=== PATIENT | female | born 1960 | race Caucasian/White ===

== ENCOUNTER 2018-06-12 12:49 | Emergency (ER) | payer OTHER ==
[2018-06-12 12:59] VITALS: TEMP 98.7; BMI 28.3
--- NOTE | 2018-06-12 13:31 | PDOC ---
History of Present Illness - General Chief Complaint: Blood Pressure Problem Stated Complaint: HTN SENT BY URGENT CARE Time Seen by Provider: 06/12/18 13:31 History Source: Patient Exam Limitations: No Limitations - History of Present Illness Initial Comments: 06/12/18 13:44 57 year old female with no PMH sent to ED from urgent care for high blood pressure associated with headache. She states he has had a sore throat, nasal congestion, productive cough, body aches x8 days and that is what brought her to the Emergency Department. She denies visual changes, blood in urine, back pain, abdominal pain, nausea, vomiting, diarrhea, chest pain, shortness of breath, lightheadedness, syncope, pre-syncope. Allergies - NKDA Past History - Past Medical History Allergies/Adverse Reactions: Allergies Allergy/AdvReac Type Severity Reaction Status Date / Time acetaminophen [From Tylenol] Allergy Verified 06/12/18 12:50 Home Medications: Ambulatory Orders Labetalol HCl 100 mg PO BID #14 tablet 06/12/18 COPD: No CHF: No HTN: Yes - Suicide/Smoking/Psychosocial Hx Smoking History: Never smoked Hx Alcohol Use: Yes Drug/Substance Use Hx: No Substance Use Type: Alcohol Review of Systems - Review of Systems Able to Perform ROS?: Yes Comments:: 06/12/18 13:48 General: admits to body aches. denies fever, chills, night sweats, generalized weakness. HEENT: admits to sore throat, nasal congestion. denies rhinorrhea, ear pain. Heart: denies chest pain, palpitations, syncope, lower extremity swelling, diaphoresis. Respiratory: admits to cough, sputum production. denies shortness of breath, hemoptysis. Abdomen: denies abdominal pain, nausea, vomiting, diarrhea, constipation, blood in stool. : denies dysuria, increased urinary frequency, hematuria, urinary incontinence , flank pain. Back: denies back pain. Musculoskeletal: denies joint pain, muscle pain, joint swelling. Neurological: admits to headache. denies dizziness, numbness, tingling, weakness. Skin: denies rash, laceration, abrasion. *Physical Exam - Vital Signs Last Vital Signs Temp Pulse Resp BP Pulse Ox 98.7 F 81 17 175/119 H 100 06/12/18 12:51 06/12/18 12:51 06/12/18 12:51 06/12/18 12:51 06/12/18 12:51 - Physical Exam Comments: 06/12/18 13:49 Constitutional: Well-nourished, Well-developed, appearing stated age. HEENT: head is normocephalic, atraumatic. EOMI. PERRLA. no posterior pharyngeal erythema. no tonsillar swelling. no tonsillar exudates. no cervical lymphadenopathy. bilateral TM pearly white, no erythema, no bulging. oral mucosa moist. Neck: supple. Full ROM. Heart: regular rhythm. no murmurs, rubs or gallops. Lungs: clear to auscultation bilaterally. no crackles, rhonchi or wheezing. no stridor. Abdomen: soft, nontender. normal bowel sounds. no rebound, guarding, masses. Extremities: Peripheral pulses intact. No lower extremity edema. Neurological: Alert. Oriented x3. CN2-12 intact. 5/5 strength all extremities. Full sensation all extremities and bilateral face. Romberg negative. Finger to nose normal. Gait normal. Psych: awake, alert, oriented x3. Follows commands. Answers questions appropriately. ED Treatment Course - LABORATORY CBC & Chemistry Diagram: 06/12/18 14:14 06/12/18 14:14 Medical Decision Making - Medical Decision Making 06/12/18 15:15 57 year old female with no PMH sent to ED from urgent care for high blood pressure associated with headache. She states he has had a sore throat, nasal congestion, productive cough, body aches x8 days and that is what brought her to the Emergency Department. Initial Vital Signs Temp Pulse Resp BP Pulse Ox 98.7 F 81 17 175/119 H 100 06/12/18 12:51 06/12/18 12:51 06/12/18 12:51 06/12/18 12:51 06/12/18 12:51 Afebrile. No tachycardia. No tachypnea. Hypertensive - Labetolol 100 mg PO ordered No hypoxia on room air. EKG performed at 1431 - rate 69, regular rhythm, normal axis, normal intervals, no acute ST changes. CBC WBC 13.0 K/mm3 (4.0-10.8) H 06/12/18 14:14 RBC 4.82 M/mm3 (3.60-5.2) 06/12/18 14:14 Hgb 14.8 GM/dl (10.7-15.3) 06/12/18 14:14 Hct 44.4 % (32.4-45.2) 06/12/18 14:14 MCV 92.1 fl (80-96) 06/12/18 14:14 MCH 30.8 pg (25.7-33.7) 06/12/18 14:14 MCHC 33.5 g/dl (32.0-36.0) 06/12/18 14:14 RDW 12.9 % (11.6-15.6) 06/12/18 14:14 Plt Count 434 K/MM3 (134-434) 06/12/18 14:14 MPV 8.3 fl (7.5-11.1) 06/12/18 14:14 Absolute Neuts (auto) 9.8 K/mm3 06/12/18 14:14 Neutrophils % 74.9 % (42.8-82.8) 06/12/18 14:14 Lymphocytes % 20.5 % (8-40) 06/12/18 14:14 Monocytes % 4.0 % (3.8-10.2) 06/12/18 14:14 Eosinophils % 0.3 % (0-4.5) 06/12/18 14:14 Basophils % 0.3 % (0-2.0) 06/12/18 14:14 Leukocytosis noted. - Likely secondary to URI No anemia CMP Sodium 135 mmol/L (136-145) L 06/12/18 14:14 Potassium 4.1 mmol/L (3.5-5.1) 06/12/18 14:14 Chloride 100 mmol/L (98-107) 06/12/18 14:14 Carbon Dioxide 26 mmol/L (22-28) 06/12/18 14:14 Anion Gap 9 MMOL/L (8-16) 06/12/18 14:14 BUN 14 mg/dl (7-18) 06/12/18 14:14 Creatinine 0.7 mg/dl (0.6-1.3) 06/12/18 14:14 Creat Clearance w eGFR > 60 (>60) 06/12/18 14:14 Random Glucose 83 mg/dl (74-106) 06/12/18 14:14 Calcium 9.4 mg/dl (8.4-10.2) 06/12/18 14:14 Total Bilirubin 0.5 mg/dl (0.2-1.0) 06/12/18 14:14 AST 20 U/L (10-42) 06/12/18 14:14 ALT 14 U/L (10-40) 06/12/18 14:14 Alkaline Phosphatase 77 U/L (32-92) 06/12/18 14:14 Creatine Kinase 57 IU/L (26-192) 06/12/18 14:36 Troponin I < 0.03 ng/ml (0.00-0.06) 06/12/18 14:36 Total Protein 8.2 g/dl (6.4-8.3) 06/12/18 14:14 Albumin 4.5 g/dl (3.5-5.0) 06/12/18 14:14 No electrolyte abnormalities. No acute kidney injury. No hyperglycemia. No transaminitis. Troponin normal. TSH normal. CXR report - no acute intrathoracic pathology. - My interpretation - sharp costophrenic angles, no infiltrate, no cardiomegaly , no pulmonary alveolar edema. Pt likely has viral upper respiratory infection, no pneumonia seen on CXR, afebrile, (+) body aches. 06/12/18 15:32 Repeat vitals: BP 113/85 HR 83 Pt states her headache is improved and she would like to go home. No sign of hypertensive emergency - no acute kidney injury, no pulmonary alevolar edema, no leg swelling, no visual changes. Prescription for 1 week's worth of Labetolol sent to pharmacy. I spoke with the patient about the plan for care, with which she agrees. I spoke with the patient about the return precautions, she stated she understood. I spoke with the patient about the importance of monitoring her BP and following up with her PCP, she stated she understood. Pt will be discharged. *DC/Admit/Observation/Transfer Diagnosis at time of Disposition: Hypertension, Headache - Discharge Dispostion Disposition: HOME Condition at time of disposition: Stable Decision to Admit order: No - Prescriptions Prescriptions: Labetalol HCl 100 mg PO BID #14 tablet - Referrals Referrals: Jesus Alberto Ramirez [Primary Care Provider] - - Patient Instructions Printed Discharge Instructions: DI for High Blood Pressure, How to Monitor Your Blood Pressure at Home Additional Instructions: You were seen today for high blood pressure. Your lab work was normal. You were given Labetalol 100 mg by mouth in the Emergency Department for your high blood pressure. - I have sent a prescription to your pharmacy for a week's worth of Labetalol. Take as advised on label. - Take your blood pressure morning and night every day, keep a log of the readings and bring the log to your primary care doctor - You can buy a blood pressure machine from a pharmacy Follow up with your primary care doctor in 3 days. Call their office thursday and make an appointment for as soon as available. Tell the office you were seen in the Emergency Department. Your care is not complete until you follow up. Return to the Emergency Department for lightheadedness, feeling like you may pass out, passing out, chest pain, shortness of breath, palpitations, fever, nausea, vomiting or any other new, worsening or concerning symptoms. - Post Discharge Activity
--- NOTE | 2018-06-12 13:39 | PDOC ---
Attending Attestation - Resident Resident Name: Katherin Story - ED Attending Attestation I have performed the following: I have examined & evaluated the patient, The case was reviewed & discussed with the resident, I agree w/resident's findings & plan, Exceptions are as noted - HPI HPI: 06/12/18 16:43 Patient was seen at urgent care center today for URI. It was noted that her blood pressure was elevated. She was sent to the emergency room for evaluation. The patient has URI symptoms, but no chest pain, shortness of breath, abdominal pain, nausea vomiting diarrhea, visual or focal neurologic symptoms, unsteadiness of gait. She has a mild headache attributed to her sinus congestion - Physicial Exam PE: 06/12/18 16:43 Physical exam: Afebrile, normal vital signs except for a blood pressure of 181/ 119 Fundi benign without hypertensive changes Neurological C2 to 12 intact. Strength full and symmetric. No focal sensory or motor deficits. Gait stable and unimpaired HEENT clear Neck supple without bruit mass or nodes Chest clear full breath sounds bilaterally CV S1 and S2 normal without murmur rub or gallop pulses full and symmetric no JVD or edema no bruits Abdomen benign - Medical Decision Making 06/12/18 16:45 Impression: Elevated blood pressure. This may due to her respiratory illness, but the level of elevation suggests that she may have underlying essential hypertension. Plan: EKG, chest x-ray, cardiac enzymes, CBC, and chemistries were performed. There were no significant abnormalities. The patient responded well to oral labetalol, and within a short period of time the blood pressure had come down to 113/85. 06/12/18 16:46 She will be continued on labetalol until follow-up with primary physician, repeat measurement of blood pressure by primary care physician was recommended and further medical management depending on results. Return to ER if severe symptoms such as increased headache, chest pain, shortness of breath, visual or focal neurologic symptoms.
[2018-06-12] MEDS ORDERED: SODIUM CHLORIDE 1,000 ML IV STA (13:43)
[2018-06-12] MEDS ORDERED: ACETAMINOPHEN 1000 MG/100 ML VIAL (NON FORMULARY) IVPB ONE (13:52)
[2018-06-12] MEDS ORDERED: LABETALOL HCL 100 MG TABLET (FP) PO ONE (13:55)
[2018-06-12] MEDS ORDERED: ACETAMINOPHEN INJECTION 100 ML IVPB ONE (14:14)
[2018-06-12] MEDS ORDERED: LABETALOL HCL 200 MG TABLET (FP) ONE (14:14)
[2018-06-12 14:45] LABS: BASO % 0.3 % (0-2.0); EOS % 0.3 % (0-4.5); HEMATOCRIT 44.4 % (32.4-45.2); HEMOGLOBIN 14.8 GM/dl (10.7-15.3); LYMPH % 20.5 % (8-40); MCH 30.8 pg (25.7-33.7); MCHC 33.5 g/dl (32.0-36.0); MEAN CELL VOLUME 92.1 fl (80-96); MEAN PLT VOLUME 8.3 fl (7.5-11.1); NEUT % 74.9 % (42.8-82.8); PLATELET COUNT 434 K/MM3 (134-434); RBC 4.82 M/mm3 (3.60-5.2); RDW 12.9 % (11.6-15.6)
[2018-06-12 15:10] LABS: ALBUMIN 4.5 g/dl (3.5-5.0); ALK PHOS 77 U/L (32-92); ANION GAP 9 MMOL/L (8-16); BILIRUBIN,TOTAL 0.5 mg/dl (0.2-1.0); BLOOD UREA NITROGEN 14 mg/dl (7-18); CALCIUM 9.4 mg/dl (8.4-10.2); CHLORIDE 100 mmol/L (98-107); CO2 26 mmol/L (22-28); CREATININE 0.7 mg/dl (0.6-1.3); GLUCOSE,RANDOM 83 mg/dl (74-106); POTASSIUM 4.1 mmol/L (3.5-5.1); SGOT/AST 20 U/L (10-42); SGPT/ALT 14 U/L (10-40); SODIUM 135 mmol/L (136-145); TOT PROT 8.2 g/dl (6.4-8.3)
[2018-06-12 15:39] VITALS: BP 113/85; PULSE 83
--- NOTE | 2018-06-13 10:48 | EKG ---
Test Reason : Blood Pressure : / mmHG Vent. Rate : 069 BPM Atrial Rate : 069 BPM P-R Int : 142 ms QRS Dur : 082 ms QT Int : 414 ms P-R-T Axes : 050 024 037 degrees QTc Int : 443 ms NORMAL SINUS RHYTHM NORMAL ECG NO PREVIOUS ECGS AVAILABLE Confirmed by BUSTER JACKSON MD ([id number]) on 06/13/2018 10:48:09 AM Referred By: PUNEET KATHLEEN Confirmed By:BUSTER JACKSON MD
== END 2018-06-12 15:48 | disposition home or self-care (01) ==
LOC: FER 12:49
PROC: 3E033NZ Introduction of Analgesics, Hypnotics, Sedatives into Peripheral Vein, Percutaneous Approach (ICD-10-PCS; principal; 2018-06-12)
DX: I10 Essential (primary) hypertension (principal); R51 Headache
CPT/HCPCS: 36415; 71046-TC-FY; 80053; 82550; 84443; 84484; 85025; 93005; 99283-25; J0131